=== PATIENT | male | born 1940 | race Caucasian/White ===

== ENCOUNTER 2019-05-09 13:33 | Observation (INO) | payer MEDICARE ==
[~2019-05-09] VITALS: Ht 170.2 cm; Wt 90.7 kg
[2019-05-09 14:02] LABS: BASOPHILS % (AUTO) 0.3 % (0.0-5.0); EOSINOPHILS % (AUTO) 4.3 % (0.0-8.0); LYMPHOCYTES % (AUTO) 7.4 % (21.0-51.0); MEAN CORPUSCULAR HEMOGLOBIN 22.4 pg (27.0-33.0); MEAN CORPUSCULAR HGB CONC 27.9 g/dL (32.0-36.0); MEAN CORPUSCULAR VOLUME 80.2 fL (79-99); MONOCYTES % (AUTO) 9.7 % (3.0-13.0); NEUTROPHILS % (AUTO) 77.9 % (40.0-77.0); PLATELET COUNT (AUTO) 379 K/uL (130-400); RED BLOOD CELL COUNT(AUTO) 2.68 MIL/uL (4.50-6.20); RED CELL DISTRIBUTION WIDTH 15.6 % (11.0-15.5); WHITE BLOOD COUNT (AUTO) 10.6 K/uL (4.8-10.8)
[2019-05-09 14:07] LABS: CREATININE 0.9 mg/dL (0.5-1.5); POTASSIUM 4.5 mmol/L (3.5-5.1)
[2019-05-09 14:08] LABS: INR 1.08 (0.85-1.15); PARTIAL THROMBOPLASTIN TIME 24.8 SEC (26.3-35.5); PROTHROMBIN TIME 11.3 SEC (9.6-11.6)
[2019-05-09] MEDS ORDERED: ASPIRIN 325 MG TABLET ONE (14:08)
[2019-05-09 14:09] LABS: HEMATOCRIT 21.5 % (42-54)
[2019-05-09 14:13] LABS: ALBUMIN 3.2 g/dL (3.5-5.0); BILIRUBIN,TOTAL 0.6 mg/dL (0.2-1.0); TOTAL PROTEIN, SERUM 6.7 g/dL (6.0-8.3)
[2019-05-09] MEDS ORDERED: ACETAMINOPHEN 325 MG TAB PO PRN (16:00)
[2019-05-09] MEDS ORDERED: DiphenhydrAMINE HCL 50 MG/ML VIAL IV PRN (16:00)
[2019-05-09] MEDS ORDERED: LACTULOSE 20 GM/30 ML UDCUP PO PRN (16:00)
[2019-05-09] MEDS ORDERED: SODIUM CHLORIDE 0.9% 500ML 500 ML IV ONE (17:48)
[2019-05-09] MEDS ORDERED: NITROGLYCERIN 1GM/1 INCH PACKET TD SCH (18:15)
[2019-05-09] MEDS ORDERED: FAMOTIDINE/PF 20 MG/2 ML VIAL IV SCH (21:00)
[2019-05-09] MEDS ORDERED: METOPROLOL TARTRATE 25 MG TAB PO SCH (21:00)
[2019-05-10 02:19] LABS: HEMATOCRIT 26.6 % (42-54)
[2019-05-10 06:32] LABS: BASOPHILS % (AUTO) 0.7 % (0.0-5.0); EOSINOPHILS % (AUTO) 5.6 % (0.0-8.0); HEMATOCRIT 28.1 % (42-54); LYMPHOCYTES % (AUTO) 7.1 % (21.0-51.0); MEAN CORPUSCULAR HEMOGLOBIN 23.4 pg (27.0-33.0); MEAN CORPUSCULAR HGB CONC 29.2 g/dL (32.0-36.0); MEAN CORPUSCULAR VOLUME 80.3 fL (79-99); MONOCYTES % (AUTO) 10.9 % (3.0-13.0); NEUTROPHILS % (AUTO) 75.4 % (40.0-77.0); NUCLEATED RED BLOOD CELLS 0.2 % (0.0-0.19); PLATELET COUNT (AUTO) 396 K/uL (130-400); RED CELL DISTRIBUTION WIDTH 15.8 % (11.0-15.5); WHITE BLOOD COUNT (AUTO) 12.3 K/uL (4.8-10.8)
[2019-05-10 06:47] LABS: ALBUMIN 3.2 g/dL (3.5-5.0); BILIRUBIN,TOTAL 1.1 mg/dL (0.2-1.0); CREATININE 0.8 mg/dL (0.5-1.5); POTASSIUM 3.9 mmol/L (3.5-5.1); TOTAL PROTEIN, SERUM 6.7 g/dL (6.0-8.3)
[2019-05-10 11:50] LABS: BASOPHILS % (AUTO) 0.4 % (0.0-5.0); EOSINOPHILS % (AUTO) 2.9 % (0.0-8.0); HEMATOCRIT 27.5 % (42-54); LYMPHOCYTES % (AUTO) 6.1 % (21.0-51.0); MEAN CORPUSCULAR HGB CONC 29.8 g/dL (32.0-36.0); MEAN CORPUSCULAR VOLUME 80.6 fL (79-99); MONOCYTES % (AUTO) 9.3 % (3.0-13.0); NEUTROPHILS % (AUTO) 80.9 % (40.0-77.0); NUCLEATED RED BLOOD CELLS 0.2 % (0.0-0.19); PLATELET COUNT (AUTO) 399 K/uL (130-400); RED BLOOD CELL COUNT(AUTO) 3.41 MIL/uL (4.50-6.20); RED CELL DISTRIBUTION WIDTH 15.9 % (11.0-15.5); WHITE BLOOD COUNT (AUTO) 11.6 K/uL (4.8-10.8)
[2019-05-10] MEDS ORDERED: PROPOFOL 10 MG/ML 20ML VIAL IV ONE (12:21)
[2019-05-10 12:35] VITALS: BP 116/49
[2019-05-10 12:40] VITALS: BP 133/60
[2019-05-10 12:45] VITALS: BP 116/99
[2019-05-10 12:50] VITALS: BP 155/60
[2019-05-10] MEDS ORDERED: METO50TA18 PO (13:06)
[2019-05-10] MEDS ORDERED: ATOR40TA69 PO (13:06)
[2019-05-10] MEDS ORDERED: ASPI-1197 PO (13:06)
[2019-05-10] MEDS ORDERED: PANT40TA PO (14:05)
[2019-05-10] MEDS ORDERED: FERR325T22 PO (14:05)
== END 2019-05-10 14:19 | disposition home or self-care (01) ==
LOC: EDH 13:33 → INTOOBSV 15:56 → EDHIP 15:56
PROVIDERS: ADMIT Internal Medicine; ATTEND Internal Medicine
DX: R07.89 Other chest pain (principal); D50.9 Iron deficiency anemia, unspecified; K92.1 Melena; K29.70 Gastritis, unspecified, without bleeding; K26.9 Duodenal ulcer, unspecified as acute or chronic, without hemorrhage or perforation; E78.5 Hyperlipidemia, unspecified; I10 Essential (primary) hypertension; I25.10 Atherosclerotic heart disease of native coronary artery without angina pectoris; E78.00 Pure hypercholesterolemia, unspecified; Z95.1 Presence of aortocoronary bypass graft; Z79.899 Other long term (current) drug therapy
CPT/HCPCS: 36415 ×2; 36430; 43239; 71045; 80053 ×2; 82270; 82550; 84484 ×5; 85014; 85018; 85025 ×3; 85060; 85610; 85730; 86850; 86900; 86901; 86922 ×2; 88305; 93005 ×4; 99284; A4215; A4221; A4222; A4223; A4606; A4620; A4663; G0378 ×20; J2704; J7040; P9016 ×2